=== PATIENT | female | born 1935 | race Caucasian/White ===

== ENCOUNTER → 2021-04-30 | Outpatient (CLI) | payer MEDICARE ==
[~2021-04-30] MED LIST: CIPR250; LEVSOD75 PO; LOSA50 PO; METO25ER PO; METO50 PO; METO50ER PO; RYTARY PO
[2021-04-30 15:47] LABS: BASOPHILS ABSOLUTE AUTO 0.06 K/mm3 (0.00-0.23); BASOPHILS PERCENT AUTO 1 % (0-2); EOSINOPHILS ABSOLUTE AUTO 0.19 K/mm3 (0.00-0.68); EOSINOPHILS PERCENT AUTO 2 % (0-6); Hematocrit 30.7 % (33.0-51.0); Hemoglobin 10.1 g/dL (11.5-16.0); IMMATURE GRAN ABSOLUTE AUTO 0.06 K/mm3 (0.00-0.10); IMMATURE GRAN PERCENT AUTO 1 % (0-1); LYMPHOCYTES ABSOLUTE AUTO 1.32 K/mm3 (0.84-5.20); LYMPHOCYTES PERCENT AUTO 12 % (21-46); MONOCYTES ABSOLUTE AUTO 0.98 K/mm3 (0.16-1.47); MONOCYTES PERCENT AUTO 9 % (4-13); Mean Corpuscular HGB Conc 32.9 g/dL (31.5-36.5); Mean Corpuscular Volume 94 fL (80-100); Mean Platelet Volume 10.3 fL (9.1-12.4); NEUTROPHILS ABSOLUTE AUTO 8.53 K/mm3 (1.96-9.15); NEUTROPHILS PERCENT AUTO 77 % (41-73); Platelet Count 296 K/mm3 (150-400); RDW Coefficient Variation 15.5 % (11.7-14.2); Red Blood Cell Count 3.26 M/mm3 (3.80-5.20); White Blood Cell Count 11.14 K/mm3 (4.00-11.30)
[2021-04-30 17:24] LABS: Alanine Aminotransfer (ALT/SGP 7 U/L (12-78); Albumin, Blood 2.7 g/dL (3.4-5.0); Albumin/Globulin Ratio 0.8 (0.8-1.8); Alk Phos 61 U/L (50-136); Anion Gap 6 mmol/L (6-16); Aspartate Aminotrans (AST/SGOT 15 U/L (12-37); Bilirubin, Total 0.4 mg/dL (0.1-1.0); Blood Urea Nitrogen 20 mg/dL (8-24); Bun/Creatinine Ratio 28.6 (12.0-20.0); CO2, Blood 30 mmol/L (21-32); Calcium, Blood 8.2 mg/dL (8.5-10.1); Chloride, Blood 96 mmol/L (98-108); Globulin, Blood 3.5 g/dL (2.2-4.0); Glomerular Filtration Rate >60 (60-); Glucose, Blood 126 mg/dL (70-99); Potassium, Blood 4.2 mmol/L (3.5-5.5); Sodium, Blood 132 mmol/L (136-145); Total Protein, Blood 6.2 g/dL (6.4-8.2)
== END | disposition home or self-care (01) ==
LOC: LAB SHORT 15:43
PROVIDERS: Chiropractor
DX: R32 Unspecified urinary incontinence (principal); R60.0 Localized edema; N39.0 Urinary tract infection, site not specified
CPT/HCPCS: 80053; 83880; 85025; 87077; 87086; 87186

== ENCOUNTER 2021-05-04 08:30 | Inpatient (IN) | payer MEDICARE, OTHER ==
[~2021-05-04] VITALS: Ht 157.5 cm; Wt 67.2 kg
[2021-05-04] MEDS ORDERED: LOSA50 PO (09:01)
[2021-05-04] MEDS ORDERED: LEVSOD75 PO (09:01)
[2021-05-04] MEDS ORDERED: RYTARY PO ×2 (09:02→09:03)
[2021-05-04] MEDS ORDERED: METO50 PO (09:02)
[2021-05-04] MEDS ORDERED: CIPR250 (09:02)
[2021-05-04 09:07] LABS: BASOPHILS ABSOLUTE AUTO 0.06 K/mm3 (0.00-0.23); BASOPHILS PERCENT AUTO 1 % (0-2); EOSINOPHILS ABSOLUTE AUTO 0.18 K/mm3 (0.00-0.68); EOSINOPHILS PERCENT AUTO 2 % (0-6); Hematocrit 31.5 % (33.0-51.0); Hemoglobin 10.2 g/dL (11.5-16.0); IMMATURE GRAN ABSOLUTE AUTO 0.08 K/mm3 (0.00-0.10); IMMATURE GRAN PERCENT AUTO 1 % (0-1); LYMPHOCYTES ABSOLUTE AUTO 0.99 K/mm3 (0.84-5.20); LYMPHOCYTES PERCENT AUTO 9 % (21-46); MONOCYTES ABSOLUTE AUTO 1.16 K/mm3 (0.16-1.47); MONOCYTES PERCENT AUTO 11 % (4-13); Mean Corpuscular HGB 31.2 pg (26.0-34.0); Mean Corpuscular HGB Conc 32.4 g/dL (31.5-36.5); Mean Corpuscular Volume 96 fL (80-100); Mean Platelet Volume 9.5 fL (9.1-12.4); NEUTROPHILS ABSOLUTE AUTO 8.04 K/mm3 (1.96-9.15); NEUTROPHILS PERCENT AUTO 77 % (41-73); Platelet Count 294 K/mm3 (150-400); RDW Coefficient Variation 15.9 % (11.7-14.2); RDW Standard Deviation 54.6 fL (35.1-46.3); Red Blood Cell Count 3.27 M/mm3 (3.80-5.20); White Blood Cell Count 10.51 K/mm3 (4.00-11.30)
[2021-05-04 09:40] LABS: Alanine Aminotransfer (ALT/SGP 6 U/L (12-78); Albumin, Blood 2.8 g/dL (3.4-5.0); Albumin/Globulin Ratio 0.6 (0.8-1.8); Alk Phos 60 U/L (50-136); Anion Gap 6 mmol/L (6-16); Aspartate Aminotrans (AST/SGOT 14 U/L (12-37); Bilirubin, Total 0.7 mg/dL (0.1-1.0); Blood Urea Nitrogen 17 mg/dL (8-24); Bun/Creatinine Ratio 20.4 (12.0-20.0); CO2, Blood 29 mmol/L (21-32); Calcium, Blood 8.3 mg/dL (8.5-10.1); Chloride, Blood 98 mmol/L (98-108); Creatinine, Blood 0.83 mg/dL (0.40-1.00); Globulin, Blood 4.4 g/dL (2.2-4.0); Glomerular Filtration Rate >60 (60-); Glucose, Blood 112 mg/dL (70-99); Potassium, Blood 3.8 mmol/L (3.5-5.5); Sodium, Blood 133 mmol/L (136-145); Total Protein, Blood 7.2 g/dL (6.4-8.2)
--- NOTE | 2021-05-04 14:00 | NUR ---
PT ADMITTED TO [facility] 330 FROM ED WITH DAUGHTER AT BEDSIDE ON ARRIVAL. DID DISCUSS WITH DAUGHTER VISITING HOURS. DAUGHTER PRIMARY CAREGIVER. DID TELL HER IF SHE IS GIVING FREQUENT ONGOING CARE SHE COULD BE HERE. PT ABLE TO ANSWER MOST QUESTIIONS WITHOUT DAUGHTERS HELP.
[2021-05-04] MEDS ORDERED: METO25ER PO (14:36)
[2021-05-04] MEDS ORDERED: METO50ER PO (14:37)
--- NOTE | 2021-05-04 19:13 | NUR ---
SHIFT SUMMARY PT VERY PARTICULAR ABOUT POSITIONING BUT AGREEABLE WHEN SPOKEN TO. DR. BORDEN IN TO VISIT THIS EVENING WITH PLAN FOR I AND D OF ABDOMEN TOMORROW WITH POSSIBLE WOUND VAC. PT REPORTS SHE DOESN'T WANT MULTIPLE SURGERIES TO FIX THE PROBLEM. DOZING ON AND OFF SINCE ARRIVAL TO FLOOR.
--- NOTE | 2021-05-04 22:27 | NUR ---
Mid abd dressing changed, two small open areas draining copious amounts of purulent drainage. Skin around open areas cleaned and covered wiht exudry. Pt states I&D scheduled in am.
[2021-05-05 05:19] LABS: BASOPHILS ABSOLUTE AUTO 0.04 K/mm3 (0.00-0.23); BASOPHILS PERCENT AUTO 1 % (0-2); EOSINOPHILS ABSOLUTE AUTO 0.33 K/mm3 (0.00-0.68); EOSINOPHILS PERCENT AUTO 4 % (0-6); Hematocrit 26.2 % (33.0-51.0); Hemoglobin 8.5 g/dL (11.5-16.0); IMMATURE GRAN ABSOLUTE AUTO 0.05 K/mm3 (0.00-0.10); IMMATURE GRAN PERCENT AUTO 1 % (0-1); LYMPHOCYTES ABSOLUTE AUTO 1.51 K/mm3 (0.84-5.20); LYMPHOCYTES PERCENT AUTO 19 % (21-46); MONOCYTES ABSOLUTE AUTO 0.94 K/mm3 (0.16-1.47); MONOCYTES PERCENT AUTO 12 % (4-13); Mean Corpuscular HGB 31.5 pg (26.0-34.0); Mean Corpuscular HGB Conc 32.4 g/dL (31.5-36.5); Mean Corpuscular Volume 97 fL (80-100); Mean Platelet Volume 9.6 fL (9.1-12.4); NEUTROPHILS PERCENT AUTO 63 % (41-73); Platelet Count 254 K/mm3 (150-400); RDW Coefficient Variation 16.2 % (11.7-14.2); RDW Standard Deviation 55.6 fL (35.1-46.3); White Blood Cell Count 7.77 K/mm3 (4.00-11.30)
[2021-05-05 05:52] LABS: Alanine Aminotransfer (ALT/SGP 9 U/L (12-78); Albumin, Blood 2.1 g/dL (3.4-5.0); Albumin/Globulin Ratio 0.6 (0.8-1.8); Alk Phos 43 U/L (50-136); Anion Gap 5 mmol/L (6-16); Aspartate Aminotrans (AST/SGOT 12 U/L (12-37); Bilirubin, Total 0.7 mg/dL (0.1-1.0); Blood Urea Nitrogen 13 mg/dL (8-24); Bun/Creatinine Ratio 18.2 (12.0-20.0); CO2, Blood 28 mmol/L (21-32); Calcium, Blood 7.6 mg/dL (8.5-10.1); Chloride, Blood 104 mmol/L (98-108); Creatinine, Blood 0.72 mg/dL (0.40-1.00); Globulin, Blood 3.4 g/dL (2.2-4.0); Glomerular Filtration Rate >60 (60-); Glucose, Blood 73 mg/dL (70-99); Potassium, Blood 3.3 mmol/L (3.5-5.5); Sodium, Blood 137 mmol/L (136-145); Total Protein, Blood 5.5 g/dL (6.4-8.2)
--- NOTE | 2021-05-05 06:38 | NUR ---
SHIFT SUMMARY PATIENT ALERT ORIENTED X4 ABLE TO VOICE NEEDS TURNING AND REPOSITION INCOTNECARE DONE BY STAFF RED AND EXCORIATION TO HER BUTTOCKS PUWICK AND ALLEVYN APPLIED FOR COMFORT.PATIENT NPO FROM MIDNIGHT FOR I&D THIS TODAY,
[2021-05-05 09:17] LABS: Influenza A, PCR NEGATIVE (NEGATIVE); Influenza B, PCR NEGATIVE (NEGATIVE); Resp Syncytial Virus, PCR NEGATIVE (NEGATIVE); SARS-Cov-2 (COVID-19) PCR, MMC NEGATIVE (NEGATIVE)
[2021-05-05 09:33] LABS: Percent Saturation 43.1 % (15.0-50.0)
--- NOTE | 2021-05-05 13:28 | NUR ---
REPORT TO KRISTOFER BLACKBURN TO ASSUME CARE OF PATIENT.
--- NOTE | 2021-05-05 13:44 | NUR ---
RECEIVED REPORT FROM HERON COWAN RN. PATIENT RESTING COMFORTABLY IN BED, REPORTS NO PAIN. WOUND ON ABDOMEN HAS A GAUZE DRESSING THAT HAS PURULENT DRAINAGE NOTED ON BOTTOM HALF OF DRESSING. NO ODOR NOTED. NO REDNESS OR SWELLING AROUND THE DRESSING.
--- NOTE | 2021-05-05 14:51 | NUR ---
05/05/21 1451 Nikita Jones PATIENT ON SCHEDULE ANTIBIOTICS
--- NOTE | 2021-05-05 18:31 | NUR ---
SHIFT SUMMARY PT NPO THIS MORNING TO PROCEDURE PLANNED FOR ABDOMENAL ABSCESS. DAUGHTER CAME IN LATE THIS MORNING TO PROVIDE CARE FOR PT. OUT TO SURGERY APPROX 1415. CAME BACK TO ROOM APPROX 1530 WITH WOUND VAC IN PLACE AND THIN SEROSANGUINESS DISCHARGE. PT DENIES ANY PAIN TO SITE. EATING SUPPER AND REPORTS SHE WAS VERY HUNGRY.
--- NOTE | 2021-05-06 05:13 | NUR ---
SHIFT SUMMARY 85 YR F ADMITTED ON 05/04/21 FOR ABDOMINAL ABSCESS. DNR. PT HAD I&D THIS MORNING AND CURRENTLY HAS A WOUND VAC. SHE HAS NO COMPLAINTS OF PAIN OR SORENESS AT THIS TIME. PT IS A&O BUT HAS PARKINSONS DISEASE AND IS UNABLE TO AMBULATE. HER HANDS SHAKE DUE TO THE PD AND SHE IS CURRENTLY TAKING HOME MEDS FOR THAT. SHE IS A PLEASANT WOMAN WITH A HEALTHY ATTITUDE AND SHE IS FULLY AWARE OF THE GRAVITY OF HER SITUATION.
[2021-05-06 10:04] LABS: Anion Gap 5 mmol/L (6-16); Blood Urea Nitrogen 15 mg/dL (8-24); Bun/Creatinine Ratio 24.2 (12.0-20.0); CO2, Blood 27 mmol/L (21-32); Calcium, Blood 7.6 mg/dL (8.5-10.1); Chloride, Blood 106 mmol/L (98-108); Creatinine, Blood 0.62 mg/dL (0.40-1.00); Glomerular Filtration Rate >60 (60-); Glucose, Blood 119 mg/dL (70-99); Phosphorus, Blood 1.6 mg/dL (2.5-4.9); Potassium, Blood 3.7 mmol/L (3.5-5.5); Sodium, Blood 138 mmol/L (136-145)
[2021-05-06 10:06] LABS: BASOPHILS ABSOLUTE AUTO 0.01 K/mm3 (0.00-0.23); BASOPHILS PERCENT AUTO 0 % (0-2); EOSINOPHILS ABSOLUTE AUTO 0.01 K/mm3 (0.00-0.68); EOSINOPHILS PERCENT AUTO 0 % (0-6); Hematocrit 27.2 % (33.0-51.0); Hemoglobin 8.7 g/dL (11.5-16.0); IMMATURE GRAN ABSOLUTE AUTO 0.06 K/mm3 (0.00-0.10); IMMATURE GRAN PERCENT AUTO 1 % (0-1); LYMPHOCYTES ABSOLUTE AUTO 0.88 K/mm3 (0.84-5.20); LYMPHOCYTES PERCENT AUTO 15 % (21-46); MONOCYTES ABSOLUTE AUTO 0.49 K/mm3 (0.16-1.47); MONOCYTES PERCENT AUTO 9 % (4-13); Mean Corpuscular Volume 97 fL (80-100); NEUTROPHILS ABSOLUTE AUTO 4.33 K/mm3 (1.96-9.15); NEUTROPHILS PERCENT AUTO 75 % (41-73); Platelet Count 271 K/mm3 (150-400); RDW Coefficient Variation 16.3 % (11.7-14.2); RDW Standard Deviation 56.7 fL (35.1-46.3); Red Blood Cell Count 2.81 M/mm3 (3.80-5.20); White Blood Cell Count 5.78 K/mm3 (4.00-11.30)
[2021-05-06 10:16] LABS: Vancomycin, Trough 9.7 ug/mL (5.0-10.0)
--- NOTE | 2021-05-06 19:12 | NUR ---
SHIFT SUMMARY PT IN BED THROUGH THE DAY. WOUND VAC IN PLACE AND FUNCTIONING WITH SEROSANGUINESS DRAINAGE IN TUBING. REPOSITIONED SEVERAL TIMES FOR COMFORT. NO SIGNIFICANT CHANGE TODAY.
--- NOTE | 2021-05-07 04:33 | NUR ---
SHIFT SUMMARY 85 YR F ADMITTED ON 05/04/21 FOR ANABDOMINAL ABSCESS. DNR. T HAS BEEN C/O LEG PAIN AND SEEMS TO HAVE TROUBLE GETTING COMFORTABLE. SHE WANTS TO BE WOKE UP WHEN SOMEONE COMES IN THE ROOM, SHE WANTS TO KNOW EVERYTHING THAT IS GOING ON. SHE IS PLEASANT AND COOPERATIVE. SHEHAS PARKINSONS DISEASESO SHE TEND TO SHAKE ALOT, BUT SHE HANDLES IT WELL.
[2021-05-07 09:36] LABS: Vancomycin, Trough 12.1 ug/mL (5.0-10.0)
--- NOTE | 2021-05-07 11:19 | NUR ---
Review of symptoms with pt. denies pain complains of some parkinsons symptoms in arma and hands. She sometimes has mild nausea, He main source of discomfort is her chronic constipation. No dyspnea noted affect is bright. She is relieved to have treatment. She lives with her daughter who is a retired nurse. She states her daughter and son in law are wonderful. Will see if she has home helath team visits to decrease haveing to go to doctors appointments. Pt states she is no longer able to move her body and needs total assistance. if pt is starting to have to many er visits or hopitalizations and starts to struggle with swallowing suggest hospice support for family and pt. KPS score40%
--- NOTE | 2021-05-07 13:48 | NUR ---
Initial Interview with [facility] Community Manager Licensing 1. Who did you speak with? Spoke with daughter Millicent Vinson. Patient has dementia. 2. What is the patient's prior level of functions? Patient lives with Millicent Vinson. Daughter Millicent Vinson is a retired nurse. Patient is full assist: Millicent Orellana plus a caregiver (20 hours per week). Patient lives in a single story dwelling. She has strong family support living with Millicent Orellana and family. Patient has a walker (in satisfactory repair-will order a new wheelchair through [employer] upon discharge). Patient moved with Millicent Orellana in August 2020. 3. Is the patient and/or family able to provide transportation to and from doctor's appointments and pick up operator prescriptions? Millicent Vinson provides transportation as needed. 4. Does patient still drive? No; no longer able to drive/or as a cat driver's license. 5. POA/PCP/NOK: NOK: Daughter Millicent Cai [phone]/PCP [facility] Dr. Mari 6. Discharge goals: Date TBD: SNF -Daughter's preference for SNF is [facility]. Paperwork emailed to Liaison Leni Cunha on 05/07/21 -DME: TBD/wheelchair -Medication Management: Daughter -Preferred Pharmacy: [facility] -Housekeeping need: daughter/family assists with all ADLs 7. List barriers to discharge: None known at this time 8. Discharge Plan: SNF/Order DME as needed 9. PCP Follow up appointment: Will be scheduled within seven calendar days of discharge 10. Other Notes: patient is not a .
--- NOTE | 2021-05-07 17:37 | NUR ---
DAUGHTER AT BEDSIDE FOR THE FIRST PART OF THE DAY. PATIENT C/O KNEE PAIN AND WAS MEDICATED X 1 WITH TYLENOL. WOUND VAC AND PURE WICK CATHETER INTACT. IV ABX ADMINISTERED PER E-MAR. TOLERATED DIET AND PO FLUIDS WITHOUT DIFFICULTY. SALINE LOCK INTACT. WILL MONITOR.
[2021-05-08 04:56] LABS: BASOPHILS ABSOLUTE AUTO 0.05 K/mm3 (0.00-0.23); BASOPHILS PERCENT AUTO 1 % (0-2); EOSINOPHILS ABSOLUTE AUTO 0.57 K/mm3 (0.00-0.68); EOSINOPHILS PERCENT AUTO 8 % (0-6); Hemoglobin 9.4 g/dL (11.5-16.0); IMMATURE GRAN ABSOLUTE AUTO 0.09 K/mm3 (0.00-0.10); IMMATURE GRAN PERCENT AUTO 1 % (0-1); LYMPHOCYTES ABSOLUTE AUTO 1.31 K/mm3 (0.84-5.20); LYMPHOCYTES PERCENT AUTO 19 % (21-46); MONOCYTES ABSOLUTE AUTO 0.62 K/mm3 (0.16-1.47); MONOCYTES PERCENT AUTO 9 % (4-13); Mean Corpuscular HGB 31.1 pg (26.0-34.0); Mean Corpuscular HGB Conc 32.4 g/dL (31.5-36.5); Mean Corpuscular Volume 96 fL (80-100); Mean Platelet Volume 9.6 fL (9.1-12.4); NEUTROPHILS ABSOLUTE AUTO 4.21 K/mm3 (1.96-9.15); NEUTROPHILS PERCENT AUTO 62 % (41-73); Platelet Count 320 K/mm3 (150-400); RDW Coefficient Variation 16.7 % (11.7-14.2); RDW Standard Deviation 57.9 fL (35.1-46.3); Red Blood Cell Count 3.02 M/mm3 (3.80-5.20); White Blood Cell Count 6.85 K/mm3 (4.00-11.30)
[2021-05-08 05:43] LABS: Alanine Aminotransfer (ALT/SGP <6 U/L (12-78); Albumin/Globulin Ratio 0.6 (0.8-1.8); Alk Phos 47 U/L (50-136); Anion Gap 3 mmol/L (6-16); Aspartate Aminotrans (AST/SGOT 12 U/L (12-37); Bilirubin, Total 0.4 mg/dL (0.1-1.0); Blood Urea Nitrogen 14 mg/dL (8-24); Bun/Creatinine Ratio 20.5 (12.0-20.0); CO2, Blood 31 mmol/L (21-32); Calcium, Blood 7.9 mg/dL (8.5-10.1); Chloride, Blood 105 mmol/L (98-108); Creatinine, Blood 0.68 mg/dL (0.40-1.00); Globulin, Blood 3.4 g/dL (2.2-4.0); Glomerular Filtration Rate >60 (60-); Glucose, Blood 89 mg/dL (70-99); Sodium, Blood 139 mmol/L (136-145); Total Protein, Blood 5.4 g/dL (6.4-8.2)
--- NOTE | 2021-05-08 08:19 | NUR ---
PATIENT IS DNR. CAME ON 05/04/21 WITH ABD PAIN, DISTENTION AND PURULENT DRAINAGE. FOUND TO HAVE INFECTED MESH FROM ONE OF MANY PREVIOUS HERNIA SURGERIES. MESH WAS REMOVED, WITH DRAIN AND WOUND VAC BEING PLACED. WOUND VAC RUNNING AT 120. BLOOD CULTURES NEGATIVE, BUT ABSECESS CULTURES POSITIVE FOR STREP MILLERI. PUREWICK IN PLACE DUE TO INCONTINENCE AND UNABLE TO WALK AT THE MOMENT. LAST BM WAS 5 DAYS AGO. HX OF PARKINSONS AND DEMENTIA.
--- NOTE | 2021-05-08 10:46 | NUR ---
@ 7430, RECEIVED CALL FROM BERE ANDRADE CHARGE NURSE STATING SHE HAD STARTED A #22 GUAGE SALINE LOCK L FOREARM.
--- NOTE | 2021-05-08 16:35 | NUR ---
NO C/O PAIN TODDAY. TOLERATED PO FOOD AND FLUID. PURE WICK, WOUND VAC AND SALINE LOCK INTACT. DAUGHTER WAS IN TO VISIT EARLY THIS AM. AAO X 4 CURRENTLY. PLAN IS TO DISCHARGE TO REHAB WHEN BED AVAILABLE PER MD. WILL MONITOR.
--- NOTE | 2021-05-08 23:17 | NUR ---
HOSPITALIST FIDELIA MAN ORDERED FLEET ENEMA SOD PHOS 132 mL FOR CONSTIPATION X 5-7 DAYS X ONE. GIVEN PER ORDERS.
--- NOTE | 2021-05-09 03:02 | NUR ---
SHIFT SUMMARY PATIENT HAD NO ACUTE CHANGES OBSERVED. AXO X3 AND BEDREST. REPORTED CONSTIPATIOM LAST FIVE OR SO DAYS. HOSPITALIST FIDELIA IRON PILER ORDERED FLEET ENEMA AND GIVEN PER EMAR X ONE. PUREWICK IN PLACE. WOUND VAC INTACT. DENIES PAIN, SOB, AND N/V. VSS/AFEBRILE. HX PARKINSON. COOPERATIVE WITH CARE. CALL LIGHT IN REACH. BED IN LOWEST POSITION. WILL CONTINUE TO MONITOR UNTIL DAY SHIFT NURSE ASSUMES CARE.
--- NOTE | 2021-05-09 04:14 | NUR ---
PATIENT STARTING TO HAVE SMALL BOWEL MOVEMENTS. REPORTING URGE TO GO. WCTM.
[2021-05-09 05:37] LABS: Anion Gap 5 mmol/L (6-16); Blood Urea Nitrogen 11 mg/dL (8-24); Bun/Creatinine Ratio 18.8 (12.0-20.0); CO2, Blood 32 mmol/L (21-32); Calcium, Blood 8.2 mg/dL (8.5-10.1); Chloride, Blood 100 mmol/L (98-108); Creatinine, Blood 0.59 mg/dL (0.40-1.00); Glomerular Filtration Rate >60 (60-); Glucose, Blood 98 mg/dL (70-99); Potassium, Blood 3.6 mmol/L (3.5-5.5); Sodium, Blood 137 mmol/L (136-145)
--- NOTE | 2021-05-09 13:57 | NUR ---
Suggest hospice versus rehab. Pt may not be able to participate. Quality of life may be better wtih getting her home with family.
--- NOTE | 2021-05-09 14:59 | NUR ---
PT HAD WOUND VAC CHANGED. PT WOUND ON ABD CLEANED AND MEASURED 10X4X1.5 CM NO INFECTION NOTED. CANISTER WAS FULL AND NEEDED REPLACED RED/BROWN FLUID NOTED. WOUND HAS CLEAN EDGES AND FOAM CUT TO FIT WITH WOUNDVAC REPLACED. SUCTIONING WELL NO LEAKS NOTED.
--- NOTE | 2021-05-09 18:43 | NUR ---
BOWEL REGIMINE INCREASED TODAY. NO C/O PAIN VOICED. ECHO ORDERED AND PENDING. MEDICATED PER E-MAR. PURE WICK INTACT BUT WAS JUST INFORMED BY BRIM CUTTER THAT IT IS ALSO LEAKING SOME INTO THE ATTENDS. WILL INFORM PM SHIFT ABOUT THIS. WOUND VAC INTACT. DRESSING WAS CHANGED TODAY PER MAGGIE CHENEY, FOLDING RULES PRINTING MACHINE OPERATOR NURSE AND RAYMOND JANE RN CHARGE NURSE. FE INFUSION COMPLETED TODAY. AAO X 4. TOLERATED PO FOOD AND FLUIDS. WILL MONITOR.
--- NOTE | 2021-05-10 03:07 | NUR ---
SHIFT SUMMARY PATIENT HAD NO ACUTE CHANGES OBSERVED. AXOX 3 AND BEDREST. TAKES MEDICATION WHOLE WITH WATER. VSS/AFEBRILE. REPORTED FEET PAIN AND TYLENOL GIVEN PER EMAR. DENIES CHEST PAIN, SOB, AND N/V. WOUND VAC INTACT. PIV INTACT. COOPERATIVE WITH CARE. CALL LIGHT IN REACH. BED IN LOWEST POSITION. WILL CONTINUE TO MONITOR UNTIL DAY SHIFT NURSE ASSUMES CARE.
[2021-05-10 05:17] LABS: BASOPHILS ABSOLUTE AUTO 0.05 K/mm3 (0.00-0.23); BASOPHILS PERCENT AUTO 1 % (0-2); EOSINOPHILS ABSOLUTE AUTO 0.67 K/mm3 (0.00-0.68); EOSINOPHILS PERCENT AUTO 9 % (0-6); Hematocrit 30.1 % (33.0-51.0); Hemoglobin 9.5 g/dL (11.5-16.0); IMMATURE GRAN ABSOLUTE AUTO 0.09 K/mm3 (0.00-0.10); IMMATURE GRAN PERCENT AUTO 1 % (0-1); LYMPHOCYTES PERCENT AUTO 14 % (21-46); MONOCYTES PERCENT AUTO 9 % (4-13); Mean Corpuscular HGB Conc 31.6 g/dL (31.5-36.5); Mean Corpuscular Volume 98 fL (80-100); Mean Platelet Volume 9.3 fL (9.1-12.4); NEUTROPHILS ABSOLUTE AUTO 5.13 K/mm3 (1.96-9.15); NEUTROPHILS PERCENT AUTO 66 % (41-73); Platelet Count 289 K/mm3 (150-400); RDW Coefficient Variation 17.3 % (11.7-14.2); RDW Standard Deviation 60.8 fL (35.1-46.3); Red Blood Cell Count 3.06 M/mm3 (3.80-5.20); White Blood Cell Count 7.74 K/mm3 (4.00-11.30)
[2021-05-10 05:58] LABS: Alanine Aminotransfer (ALT/SGP <6 U/L (12-78); Albumin, Blood 2.1 g/dL (3.4-5.0); Albumin/Globulin Ratio 0.6 (0.8-1.8); Alk Phos 51 U/L (50-136); Anion Gap 4 mmol/L (6-16); Aspartate Aminotrans (AST/SGOT 18 U/L (12-37); Bilirubin, Total 0.5 mg/dL (0.1-1.0); Blood Urea Nitrogen 13 mg/dL (8-24); Bun/Creatinine Ratio 21.9 (12.0-20.0); CO2, Blood 32 mmol/L (21-32); Calcium, Blood 8.1 mg/dL (8.5-10.1); Chloride, Blood 101 mmol/L (98-108); Creatinine, Blood 0.59 mg/dL (0.40-1.00); Globulin, Blood 3.5 g/dL (2.2-4.0); Glomerular Filtration Rate >60 (60-); Glucose, Blood 87 mg/dL (70-99); Potassium, Blood 3.5 mmol/L (3.5-5.5); Sodium, Blood 137 mmol/L (136-145); Total Protein, Blood 5.6 g/dL (6.4-8.2)
--- NOTE | 2021-05-10 11:53 | NUR ---
PURE WICK REAPPLIED. URINE ONLY NOTED IN ATTENDS. ORLIN CARE GIVEN. GOWN, LINEN CHANGED. PATIENT REPOSITIONED. TOLERATED WELL.
--- NOTE | 2021-05-10 15:52 | NUR ---
TWO PILL BOTTLES OF PATIENT'S HOME PARKINSON'S MEDICATION PLACED IN HER BELONGING BAG TO BE TRANSPORTED TO THE FACILITY. PATIENT MADE AWARE.
[2021-05-10] MEDS ORDERED: MIRALAX17 GM PO (16:00)
[2021-05-10] MEDS ORDERED: COLACE100 MG PO (16:00)
[2021-05-10] MEDS ORDERED: Cefpodoxime Pr100 MG PO (16:01)
[2021-05-10 16:29] LABS: Influenza A, PCR NEGATIVE (NEGATIVE); Influenza B, PCR NEGATIVE (NEGATIVE); Resp Syncytial Virus, PCR NEGATIVE (NEGATIVE); SARS-Cov-2 (COVID-19) PCR, MMC NEGATIVE (NEGATIVE)
--- NOTE | 2021-05-10 17:11 | NUR ---
DRESSED PER NICOLE.
--- NOTE | 2021-05-10 17:12 | NUR ---
@ 1600, IV REMOVED WITH JELCO INTACT. PRESSURE DRESSING APPLIED.
--- NOTE | 2021-05-10 17:49 | NUR ---
AWAITING TRANSPORTATION PICKUP TO BE TRANSFERRED TO A REHAB FACILITY COORDINATED BY CARE MANAGEMENT/RN MEDICAL INPATIENT SERVICES. DAUGHTER AT BEDSIDE. IV REMOVED EARLIER. PURE WICK REMOVED. ATTENDS IN PLACED. DRESSED AND READY FOR TRANSFER. MEDICATED PER E-MAR. FOOD INTAKE FAIR, GOOD PO FLUIDS INTAKE. RECEIVED FERRLECIT AND IV ABX PER E-MAR. WILL MONITOR UNTIL TRANSFER OR SHIFT CHANGE.
--- NOTE | 2021-05-10 18:06 | NUR ---
WOUND VAC PUMP DISCONNECTED AND DRESSING TUBING CAPPED. DISCHARGED TO REHAB PER AMBULANCE WITH DAUGHTER AT SIDE. AAO X 4. NO COMPLAINTS VOICED AT DISCHARGE.
--- NOTE | 2021-05-11 08:26 | NUR ---
Per Dr. Leo discharge appropriate. Patient does not oppose discharge. Patient discharged SNF: [facility]. Date of discharge: 05/10/2021 Date of admission: 05/04/2021 Provisional diagnosis at time of admission: abdominal wall abscess Final Diagnosis at time of discharge: abdominal wall abscess Location: [facility] [address] [facility], [place] Transportation provided by: [facility] by arturo MACHADO Ordered: None needed Follow-ups needed: [facility] SANGITA will contact [facility] to schedule hospital follow-up with PCP Confirmed numbers: Chas Vinson Ayala [phone] Provider/PCP: Dr. Mari When: WITHIN 1 WEEK Specialty: N/A When: N/A Comment: No barriers to discharge. Patient has a strong support network. SANGITA will coordinate follow up through [facility]. Chas Vinson is the best contact to assist with scheduling.
== END 2021-05-10 18:45 | DRG 908 ==
LOC: ER 08:30 → MEDS 12:21 → ENPENDDIS 05-10 14:37 → MEDS 05-10 18:45
PROVIDERS: Hospitalist; Internal Medicine; Nurse Practitioner Acute Care; Pharmacist; Physician Assistant; Surgery; ADMIT Internal Medicine
PROC: 3E02340 Introduction of Influenza Vaccine into Muscle, Percutaneous Approach (ICD-10-PCS; 2021-05-04)
PROC: 0WPF0JZ Removal of Synthetic Substitute from Abdominal Wall, Open Approach (ICD-10-PCS; 2021-05-05)
PROC: 0W9F0ZZ Drainage of Abdominal Wall, Open Approach (ICD-10-PCS; principal; 2021-05-05 15:00)
DX: T85.79XA Infection and inflammatory reaction due to other internal prosthetic devices, implants and grafts, initial encounter (principal); L02.211 Cutaneous abscess of abdominal wall; E87.1 Hypo-osmolality and hyponatremia; G20 Parkinson's disease; E78.5 Hyperlipidemia, unspecified; Z23 Encounter for immunization; F02.80 Dementia in other diseases classified elsewhere, unspecified severity, without behavioral disturbance, psychotic disturbance, mood disturbance, and anxiety; I10 Essential (primary) hypertension; E03.9 Hypothyroidism, unspecified; D50.9 Iron deficiency anemia, unspecified; Z79.899 Other long term (current) drug therapy; Z88.2 Allergy status to sulfonamides; Z88.8 Allergy status to other drugs, medicaments and biological substances; Z20.822 Contact with and (suspected) exposure to COVID-19; E87.6 Hypokalemia; E83.39 Other disorders of phosphorus metabolism
CPT/HCPCS: 0241U; 36415; 74177; 80048; 80053; 80202; 82607; 82728; 82746; 83540; 83550; 83605; 84100; 85025; 87040; 87070; 87075; 87076; 87205; 90686; 93306; 96365; 96366; 96367; 99285-25; A9270; G0008; J0690; J0696; J1100; J1650; J2185; J2405; J2704; J2916; J3010; J3370; J3480; J7030; J7040; J7050; J7060; J7120; Q9967

== ENCOUNTER 2021-05-19 00:06 | Day surgery (SDC) | payer MEDICARE, OTHER ==
[~2021-05-19 00:06] MED LIST changes: +COLACE100 MG PO; +Cefpodoxime Pr100 MG PO; +MIRALAX17 GM PO
== END 2021-05-19 23:22 | disposition home or self-care (01) ==
LOC: WOUND 00:06
DX: L02.211 Cutaneous abscess of abdominal wall (principal); N73.0 Acute parametritis and pelvic cellulitis; T81.31XA Disruption of external operation (surgical) wound, not elsewhere classified, initial encounter; Y83.8 Other surgical procedures as the cause of abnormal reaction of the patient, or of later complication, without mention of misadventure at the time of the procedure; Z88.0 Allergy status to penicillin; Z48.817 Encounter for surgical aftercare following surgery on the skin and subcutaneous tissue
CPT/HCPCS: A9270; G0463

== ENCOUNTER 2021-05-26 00:17 | Day surgery (SDC) | payer MEDICARE, OTHER | END 2021-05-26 22:51 | disposition home or self-care (01) | LOC: WOUND 00:17 | DX: L02.211 Cutaneous abscess of abdominal wall (principal); T81.30XA Disruption of wound, unspecified, initial encounter; S31.109A Unspecified open wound of abdominal wall, unspecified quadrant without penetration into peritoneal cavity, initial encounter; Z48.817 Encounter for surgical aftercare following surgery on the skin and subcutaneous tissue; N73.0 Acute parametritis and pelvic cellulitis; Y83.8 Other surgical procedures as the cause of abnormal reaction of the patient, or of later complication, without mention of misadventure at the time of the procedure | CPT/HCPCS: A9270 ==

== ENCOUNTER 2021-06-02 01:46 | Day surgery (SDC) | payer MEDICARE, OTHER | END 2021-06-02 23:23 | disposition home or self-care (01) | LOC: WOUND 01:46 | DX: T81.31XA Disruption of external operation (surgical) wound, not elsewhere classified, initial encounter (principal); L02.211 Cutaneous abscess of abdominal wall; Z48.817 Encounter for surgical aftercare following surgery on the skin and subcutaneous tissue; N73.0 Acute parametritis and pelvic cellulitis; Y83.8 Other surgical procedures as the cause of abnormal reaction of the patient, or of later complication, without mention of misadventure at the time of the procedure | CPT/HCPCS: A9270 ==

== ENCOUNTER 2021-06-09 03:27 | Day surgery (SDC) | payer MEDICARE, OTHER | END 2021-06-09 23:04 | disposition home or self-care (01) | LOC: WOUND 03:27 | DX: S31.109A Unspecified open wound of abdominal wall, unspecified quadrant without penetration into peritoneal cavity, initial encounter (principal); L02.211 Cutaneous abscess of abdominal wall; N73.0 Acute parametritis and pelvic cellulitis; G20 Parkinson's disease; F02.80 Dementia in other diseases classified elsewhere, unspecified severity, without behavioral disturbance, psychotic disturbance, mood disturbance, and anxiety | CPT/HCPCS: A9270; G0463 ==

== ENCOUNTER 2021-06-16 00:57 | Day surgery (SDC) | payer MEDICARE, OTHER | END 2021-06-16 23:20 | disposition home or self-care (01) | LOC: WOUND 00:57 | DX: S31.109A Unspecified open wound of abdominal wall, unspecified quadrant without penetration into peritoneal cavity, initial encounter (principal); L02.211 Cutaneous abscess of abdominal wall; N73.0 Acute parametritis and pelvic cellulitis; G20 Parkinson's disease; F02.80 Dementia in other diseases classified elsewhere, unspecified severity, without behavioral disturbance, psychotic disturbance, mood disturbance, and anxiety | CPT/HCPCS: A9270; G0463 ==

== ENCOUNTER 2021-06-30 00:39 | Day surgery (SDC) | payer MEDICARE, OTHER | END 2021-06-30 23:04 | disposition home or self-care (01) | LOC: WOUND 00:39 | DX: L02.211 Cutaneous abscess of abdominal wall (principal); T81.31XA Disruption of external operation (surgical) wound, not elsewhere classified, initial encounter; N73.0 Acute parametritis and pelvic cellulitis; Y83.8 Other surgical procedures as the cause of abnormal reaction of the patient, or of later complication, without mention of misadventure at the time of the procedure | CPT/HCPCS: A9270 ==

== ENCOUNTER → 2021-07-15 | Outpatient (CLI) | payer MEDICARE, OTHER | END | disposition home or self-care (01) | LOC: LAB SHORT 09:05 → LAB 09:05 | DX: S31.109A Unspecified open wound of abdominal wall, unspecified quadrant without penetration into peritoneal cavity, initial encounter (principal) | CPT/HCPCS: 87070; 87075; 87076; 87185; 87205 ==

== ENCOUNTER 2021-07-21 03:20 | Day surgery (SDC) | payer MEDICARE, OTHER | END 2021-07-21 23:22 | disposition home or self-care (01) | LOC: WOUND 03:20 | DX: T81.30XA Disruption of wound, unspecified, initial encounter (principal); L02.211 Cutaneous abscess of abdominal wall; N73.0 Acute parametritis and pelvic cellulitis; G20 Parkinson's disease; F02.80 Dementia in other diseases classified elsewhere, unspecified severity, without behavioral disturbance, psychotic disturbance, mood disturbance, and anxiety; Z48.817 Encounter for surgical aftercare following surgery on the skin and subcutaneous tissue | CPT/HCPCS: A9270 ==

== ENCOUNTER 2021-07-28 01:17 | Day surgery (SDC) | payer MEDICARE, OTHER | END 2021-07-28 22:47 | disposition home or self-care (01) | LOC: WOUND 01:17 | DX: L02.211 Cutaneous abscess of abdominal wall (principal); S31.109A Unspecified open wound of abdominal wall, unspecified quadrant without penetration into peritoneal cavity, initial encounter; N73.0 Acute parametritis and pelvic cellulitis; Z48.817 Encounter for surgical aftercare following surgery on the skin and subcutaneous tissue | CPT/HCPCS: A9270; G0463 ==

== ENCOUNTER 2021-08-03 01:30 | Day surgery (SDC) | payer MEDICARE, OTHER | END 2021-08-03 23:24 | disposition home or self-care (01) | LOC: WOUND 01:30 | DX: T81.31XA Disruption of external operation (surgical) wound, not elsewhere classified, initial encounter (principal); L02.211 Cutaneous abscess of abdominal wall; S31.109D Unspecified open wound of abdominal wall, unspecified quadrant without penetration into peritoneal cavity, subsequent encounter; K63.2 Fistula of intestine; K43.9 Ventral hernia without obstruction or gangrene; F03.90 Unspecified dementia, unspecified severity, without behavioral disturbance, psychotic disturbance, mood disturbance, and anxiety | CPT/HCPCS: A9270; G0463 ==

== ENCOUNTER 2021-08-10 03:07 | Day surgery (SDC) | payer MEDICARE, OTHER | END 2021-08-10 23:33 | disposition home or self-care (01) | LOC: WOUND 03:07 | DX: S31.109D Unspecified open wound of abdominal wall, unspecified quadrant without penetration into peritoneal cavity, subsequent encounter (principal); X58.XXXD Exposure to other specified factors, subsequent encounter; L02.211 Cutaneous abscess of abdominal wall; K62.2 Anal prolapse; K43.9 Ventral hernia without obstruction or gangrene; F03.90 Unspecified dementia, unspecified severity, without behavioral disturbance, psychotic disturbance, mood disturbance, and anxiety | CPT/HCPCS: A9270; G0463 ==

== ENCOUNTER 2021-08-17 02:02 | Day surgery (SDC) | payer MEDICARE, OTHER | END 2021-08-17 23:20 | disposition home or self-care (01) | LOC: WOUND 02:02 | DX: L02.211 Cutaneous abscess of abdominal wall (principal); S31.109A Unspecified open wound of abdominal wall, unspecified quadrant without penetration into peritoneal cavity, initial encounter; K63.2 Fistula of intestine; K43.9 Ventral hernia without obstruction or gangrene; G20 Parkinson's disease | CPT/HCPCS: A9270; G0463 ==

== ENCOUNTER 2021-09-14 08:00 | Day surgery (SDC) | payer MEDICARE, OTHER | END 2021-09-14 23:59 | disposition home or self-care (01) | LOC: WOUND 08:00 | DX: L02.211 Cutaneous abscess of abdominal wall (principal); K63.2 Fistula of intestine; G20 Parkinson's disease; T81.30XA Disruption of wound, unspecified, initial encounter | CPT/HCPCS: 87070; 87077; 87186; 87205; A9270; G0463 ==

== ENCOUNTER 2021-09-21 03:45 | Day surgery (SDC) | payer MEDICARE, OTHER | END 2021-09-21 22:46 | disposition home or self-care (01) | LOC: WOUND 03:45 | DX: T81.31XA Disruption of external operation (surgical) wound, not elsewhere classified, initial encounter (principal); L02.211 Cutaneous abscess of abdominal wall; S31.109D Unspecified open wound of abdominal wall, unspecified quadrant without penetration into peritoneal cavity, subsequent encounter; X58.XXXD Exposure to other specified factors, subsequent encounter; K63.2 Fistula of intestine; K43.9 Ventral hernia without obstruction or gangrene; G20 Parkinson's disease | CPT/HCPCS: A9270; G0463 ==

== ENCOUNTER 2021-10-12 05:17 | Day surgery (SDC) | payer MEDICARE, OTHER | END 2021-10-12 23:56 | disposition home or self-care (01) | LOC: WOUND 05:17 | DX: T81.30XA Disruption of wound, unspecified, initial encounter (principal); L02.211 Cutaneous abscess of abdominal wall; K63.2 Fistula of intestine; K43.9 Ventral hernia without obstruction or gangrene; G20 Parkinson's disease | CPT/HCPCS: A9270; G0463 ==

== ENCOUNTER 2021-11-09 01:04 | Day surgery (SDC) | payer MEDICARE, OTHER | END 2021-11-09 23:59 | disposition home or self-care (01) | LOC: WOUND 01:04 | DX: T81.30XA Disruption of wound, unspecified, initial encounter (principal); L02.211 Cutaneous abscess of abdominal wall; K63.2 Fistula of intestine; K43.9 Ventral hernia without obstruction or gangrene; G20 Parkinson's disease | CPT/HCPCS: A9270; G0463 ==